=== PATIENT | male | born 1970 | race Caucasian/White ===

== ENCOUNTER 2022-11-18 21:39 | Emergency (ER) | payer OTHER, MEDICARE, MEDICAID ==
[2022-11-18 21:46] VITALS: BP 140/89
[2022-11-18] MEDS ORDERED: ACETAMINOPHEN 325 MG TABLET PO STA (21:49)
[2022-11-18] MEDS ORDERED: IBUPROFEN 600 MG TABLET PO STA (21:49)
--- NOTE | 2022-11-18 21:56 | ED Physician Documentation ---
History of Present Illness - Stated complaint Stated Complaint: FIT - Chief complaint Chief Complaint: Back Pain - History obtained from History obtained from: Patient, Police - Additonal information Additional information: This is a 52-year-old male with a past medical history of chronic lower back and cervical spine pain from multiple prior injuries as well as a prior closed head injury who presents in police custody for fit Evaluation. The patient Hit the left side of his head while being arrested. He did not lose consciousness. He has a small bump to the left side of his head but has had no mental status changes, no change in behavior, no severe headache. Patient is mildly intoxicated though states that he drinks every day and a blood alcohol of 0.[address] is quite low for this patient. He is also reporting chronic lower back pain, states he is normally on a number of medications but recently returned from [place] and has not reestablish PCP here. He is reque sting some ibuprofen as that has helped him in the past. He has no acute exacerbation of the pain, no saddle anesthesia or difficulty with bowel or bladder, no radiation of pain down the legs, no lower extremity weakness or numbness. He does have some chronic upper extremity paresthesias that are not new. He has not had a fever or chills, no chest pain or difficulty breathing, no abdominal pain nausea vomiting or diarrhea. Review of Systems Constitutional: reports: Reviewed and negative, Other (All other systems were reviewed and are negative except as described in HPI) PD PAST MEDICAL HISTORY - Past Medical History Past Medical History: Yes Neuro: Head injury, Seizure disorder Psych: Depression Musculoskeletal: Chronic back pain - Allergies Allergies/Adverse Reactions: Allergies Allergy/AdvReac Type Severity Reaction Status Date / Time No Known Drug Allergies Allergy Verified 11/18/22 21:42 PD ED PE NORMAL - Vitals Vital signs reviewed: Yes - General General: Alert and oriented X 3, No acute distress, Well developed/nourished - HEENT HEENT: PERRL, EOMI, Moist mucous membranes, Pharynx benign, Other (There is a small 1 cm contusion/bruise on the left side of the head.No other scalp injuries) - Neck Neck: Supple, no meningeal sign, No bony TTP, No adenopathy, No JVD - Cardiac Cardiac: RRR, No murmur - Respiratory Respiratory: No respiratory distress, Clear bilaterally - Back Back: No CVA TTP, No spinal TTP - Derm Derm: Normal color, Warm and dry, No rash - Extremities Extremities: No deformity, No tenderness to palpate, Normal ROM s pain, No edema, No calf tenderness / cord - Neuro Neuro: Alert and oriented X 3, 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 He did hit his head today when being arrested however he has no neurologic changes, a small bruise/contusion on the left side of head but no other findings, no headache or other concerns today. I do not believe this patient needs to be imaged, he is not on any anticoagulation, and has reassuring exam. He does have some back pain as well this is chronic for pat ient and he states no new injuries during the arrest. He has no signs of cauda equina, no fever or other red flag symptoms. The patient was given a dose of ibuprofen as well as Tylenol here in the ER. He will be discharged to the care of of the police department. He was advised to reestablish care with his primary care provider when he is released to get back on his chronic pain and other chronic medications. Patient states understanding and is discharged in stable condition to the care of of the [facility]'s office. Departure - Departure Disposition: 01 Home, Self Care Clinical Impression: Back pain Qualifiers: Back pain location: low back pain Chronicity: chronic Back pain laterality: bilateral Sciatica presence: without sciatica Qualified Code(s): M54.50 - Low back pain, unspecified Condition: Good Instructions: ED Low Back Pain Injury Comments: Please follow-up with your primary care provider when you I released from residential and they can set you up with a referral to specialist for your chronic back issues if indicated. In the meantime, you can take Tylenol 650 mg every 4-6 hours for pain as well as ibuprofen 600 mg every 8 hours as needed for pain. Heating pad and muscle rub can be effective if you have access to those.
== END 2022-11-18 21:59 | disposition home or self-care (01) ==
LOC: ED 21:39
DX: M54.50 Low back pain, unspecified (principal); S00.93XA Contusion of unspecified part of head, initial encounter; W22.8XXA Striking against or struck by other objects, initial encounter; Y92.89 Other specified places as the place of occurrence of the external cause; G89.29 Other chronic pain
CPT/HCPCS: 99282; 99283; A9270

== ENCOUNTER 2022-12-13 08:00 | Outpatient (CLI) | payer SELFPAY ==
[2022-12-13 10:27] LABS: BASOPHILS # (AUTO) 0.1 10^3/uL (0.0-0.1); BASOPHILS % (AUTO) 0.7 %; EOSINOPHILS # (AUTO) 0.2 10^3/uL (0.0-0.7); EOSINOPHILS % (AUTO) 1.8 %; HCT - HEMATOCRIT 39.4 % (42.0-52.0); HGB - HEMOGLOBIN 13.1 g/dL (14.0-18.0); LYMPHOCYTES # (AUTO) 2.2 10^3/uL (1.5-3.5); LYMPHOCYTES % (AUTO) 24.6 %; MEAN CORPUSCULAR HEMOGLOBIN 31.8 pg (27.0-31.0); MEAN CORPUSCULAR HGB CONC 33.2 g/dL (32.0-36.0); MEAN CORPUSCULAR VOLUME 95.6 fL (80.0-94.0); MEAN PLATELET VOLUME 10.2 fL (7.4-11.4); MONOCYTES # (AUTO) 1.1 10^3/uL (0.0-1.0); MONOCYTES % (AUTO) 12.6 %; NEUTROPHILS # (AUTO) 5.3 10^3/uL (1.5-6.6); PLT - PLATELET COUNT 303 10^3/uL (130-450); RED BLOOD COUNT 4.12 10^6/uL (4.70-6.10); WHITE BLOOD COUNT 8.8 x10^3/uL (4.8-10.8)
[2022-12-13 10:40] LABS: ALBUMIN 3.6 g/dL (3.2-5.5); ALBUMIN/GLOBULIN RATIO 1.2 (1.0-2.2); BILIRUBIN,TOTAL 0.5 mg/dL (0.2-1.0); CALCIUM 8.8 mg/dL (8.5-10.3); CREATININE 0.7 mg/dL (0.6-1.2); TOTAL PROTEIN 6.5 g/dL (6.7-8.2)
== END 2022-12-13 23:59 | disposition home or self-care (01) ==
LOC: LAB.R 08:00
PROVIDERS: ATTEND Registered Nurse
DX: R68.89 Other general symptoms and signs (principal)
CPT/HCPCS: 80053; 85025

== ENCOUNTER 2023-02-11 20:49 | Outpatient (CLI) | payer MEDICARE, MEDICAID | END 2023-02-11 23:59 | disposition short-term general hospital (02) | LOC: EMS 20:49 | DX: R42 Dizziness and giddiness (principal); R20.0 Anesthesia of skin; F10.90 Alcohol use, unspecified, uncomplicated; K42.9 Umbilical hernia without obstruction or gangrene | CPT/HCPCS: A0425; A0429 ==

== ENCOUNTER 2023-10-13 15:31 | Outpatient (CLI) | payer MEDICARE, MEDICAID ==
[2023-10-13 17:55] LABS: BASOPHILS # (AUTO) 0.1 10^3/uL (0.0-0.1); BASOPHILS % (AUTO) 0.7 %; EOSINOPHILS # (AUTO) 0.2 10^3/uL (0.0-0.7); EOSINOPHILS % (AUTO) 1.8 %; HCT - HEMATOCRIT 42.8 % (42.0-52.0); HGB - HEMOGLOBIN 14.4 g/dL (14.0-18.0); LYMPHOCYTES # (AUTO) 2.1 10^3/uL (1.5-3.5); LYMPHOCYTES % (AUTO) 22.9 %; MEAN CORPUSCULAR HEMOGLOBIN 31.9 pg (27.0-31.0); MEAN CORPUSCULAR HGB CONC 33.6 g/dL (32.0-36.0); MEAN CORPUSCULAR VOLUME 94.9 fL (80.0-94.0); MEAN PLATELET VOLUME 10.2 fL (7.4-11.4); MONOCYTES % (AUTO) 10.4 %; NEUTROPHILS # (AUTO) 5.9 10^3/uL (1.5-6.6); NEUTROPHILS % (AUTO) 63.9 %; PLT - PLATELET COUNT 362 10^3/uL (130-450); RED BLOOD COUNT 4.51 10^6/uL (4.70-6.10); RED CELL DISTRIBUTION WIDTH 13.4 % (12.0-15.0); WHITE BLOOD COUNT 9.2 x10^3/uL (4.8-10.8)
[2023-10-13 18:27] LABS: AMPHETAMINE SCREEN,URINE NEGATIVE (NEGATIVE); BARBITURATE SCREEN,UR NEGATIVE (NEGATIVE); BENZODIAZEPINES SCREEN, URINE NEGATIVE (NEGATIVE); BUPRENORPHINE SCREEN, URINE NEGATIVE (NEGATIVE); COCAINE SCREEN URINE NEGATIVE (NEGATIVE); METHADONE SCREEN, URINE NEGATIVE (NEGATIVE); METHAMPHETAMINES SCREEN, URINE NEGATIVE (NEGATIVE); OPIATE SCREEN, URINE NEGATIVE (NEGATIVE); OXYCODONE SCREEN, URINE NEGATIVE (NEGATIVE); THC CANNABINOID SCREEN, URINE POSITIVE (NEGATIVE); TRICYCLIC ANTIDEPRESSANT,URINE NEGATIVE (NEGATIVE)
[2023-10-13 18:30] LABS: ALBUMIN 4.4 g/dL (3.2-5.5); ALKALINE PHOSPHATASE 70 IU/L (42-121); ALT ALANINE AMINOTRANSFERASE 12 IU/L (10-60); AST ASPARTATE AMINOTRANSFERASE 17 IU/L (10-42); BILIRUBIN,TOTAL 0.4 mg/dL (0.2-1.0); BUN - BLOOD UREA NITROGEN 21 mg/dL (6-20); CALCIUM 9.4 mg/dL (8.5-10.3); CARBON DIOXIDE - CO2 25 mmol/L (21-32); CHLORIDE 105 mmol/L (101-111); CHOL/HDL RATIO 4.3 (<5.0); CHOLESTEROL 176 mg/dL; GFR - MDRD 78 (>89); GLUCOSE 93 mg/dL (74-104); HDL CHOLESTEROL 41 mg/dL; LDL CHOLESTEROL,CALCULATED 89 mg/dL; LDL/HDL RATIO 2.2 (<3.6); POTASSIUM 4.7 mmol/L (3.5-4.5); SODIUM 137 mmol/L (135-145); TOTAL PROTEIN 6.6 g/dL (6.4-8.9); TRIGLYCERIDES 231 mg/dL (48-352); VLDL CHOLESTEROL 46 mg/dL
[2023-10-13 18:37] LABS: THYROID STIMULATING HORMONE 2.43 uIU/mL (0.34-5.60)
== END 2023-10-13 15:32 | disposition home or self-care (01) ==
LOC: LAB.N 15:31
PROVIDERS: ATTEND Nurse Practitioner
DX: I10 Essential (primary) hypertension (principal); Z13.220 Encounter for screening for lipoid disorders; R29.6 Repeated falls; R97.20 Elevated prostate specific antigen [PSA]
CPT/HCPCS: 36415; 80053; 80061; 80306; 83721; 84153; 84154; 84443; 85025

== ENCOUNTER 2024-03-01 13:47 | Outpatient (CLI) | payer OTHER, MEDICAID | END 2024-03-01 13:48 | disposition home or self-care (01) | LOC: LAB.N 13:47 | PROVIDERS: ATTEND Nurse Practitioner | DX: R97.20 Elevated prostate specific antigen [PSA] (principal) | CPT/HCPCS: 36415; 84153 ==